=== PATIENT | female | born 1950 | race Caucasian/White ===

== ENCOUNTER 2017-07-06 12:13 | Emergency (ER) | payer OTHER ==
[~2017-07-06 12:13] MED LIST: CIPR500T2 PO; PROM6.257 PO; Z.0.NO CURRENT MEDS
[2017-07-06 12:15] VITALS: BP 168/79; PULSE 91; RESP 16; TEMP 98.2; O2SAT 99
[2017-07-06] MEDS ORDERED: ASPI-516 CHEW (12:26)
--- NOTE | 2017-07-06 12:40 | PD ---
HPI Chief Complaint: Edema Time Seen by Provider: 12:24 Travel History International Travel<30 days: No Contact w/Intl Traveler<30days: No Traveled to known affect area: No History of Present Illness HPI 67yo F with no PMH presents to the ED with c/o left leg pain and swelling for 1 day. Denies any fever, trauma, focal weakness, history of DVT, chest pain, sob , n/v, abdominal pain. Said she has history of left knee meniscus tear and had cortisone injection. Denies any recent surgery. Last travel was in April. PFSH Past Medical History Asthma: Yes Hypertension: Yes Musculoskeletal: Yes (left knee torn miniscus) Immunizations Current: Yes Thyroid Disease: Yes Triglycerides - High: Yes Tetanus Vaccination: > 5 Years Influenza Vaccination: Yes Past Surgical History Appendectomy: Yes Social History Alcohol Use: Yes (weekly, several beers) Tobacco Use: No Substance Use: No Allergies-Medications (Allergen,Severity, Reaction): Coded Allergies: No Known Allergies (Verified Adverse Reaction, Unknown, 07/06/17) Reported Meds & Prescriptions Reported Meds & Active Scripts Active Hydrocodone-Acetaminophen 5-325 mg Tab 1 Tab PO Q6H PRN Eliquis (Apixaban) 5 Mg Tab 10 Mg PO BID Reported Aspirin 81 Mg Chew 81 Mg CHEW DAILY Review of Systems Except as stated in HPI: all other systems reviewed are Neg Physical Exam Narrative GENERAL: 67yo F not in distress. SKIN: Focused skin assessment warm/dry. HEAD: Atraumatic. Normocephalic. EYES: Pupils equal and round. No scleral icterus. No injection or drainage. ENT: No nasal bleeding or discharge. Mucous membranes pink and moist. NECK: Trachea midline. No JVD. CARDIOVASCULAR: Regular rate and rhythm. No murmur appreciated. RESPIRATORY: No accessory muscle use. Clear to auscultation. Breath sounds equal bilaterally. GASTROINTESTINAL: Abdomen soft, non-tender, nondistended. MUSCULOSKELETAL: LLE: +Edema left foot to left tib fib. +TTP left calf. No erythema. DP 2+. Sensation intact. FROM left knee. NEUROLOGICAL: Awake and alert. No obvious cranial nerve deficits. Motor grossly within normal limits. Normal speech. PSYCHIATRIC: Appropriate mood and affect; insight and judgment normal. Data Data Last Documented VS Vital Signs Date Time Temp Pulse Resp B/P (MAP) Pulse Ox O2 Delivery O2 Flow Rate FiO2 2/3/18 15:52 07/06/17 12:15 98.2 91 16 99 Orders Orders Us Leg Venous Doppler (07/06/17 ) Acetamin-Hydrocod 325-5 Mg ([place] 5-325 (07/06/17 14:30) Apixaban (Eliquis) (07/06/17 15:15) Ed Discharge Order (07/06/17 15:22) MDM Medical Decision Making Medical Screen Exam Complete: Yes Emergency Medical Condition: Yes Differential Diagnosis DVT vs. Bakers cyst Narrative Course 67yo F with left leg pain and swelling for 1 day. Denies any chest pain or sob. US showed there is thrombus in the popliteal peroneal and posterior tibial veins. This is partially occlusive. No thrombus in the common femoral vein or superficial femoral vein. The greater saphenous vein is patent. Pt has no medical problems and said she had blood work done by primary care 1 month ago and has normal renal function. Pt given lortab for pain which helped. Discussed risks and benefits and decided together to try outpatient treatment first. Will start anticoagulation with eliquis. Pt given 10mg of eliquis here. Pt instructed to call PMD to follow up in 1-2 days. Return precautions given. Diagnosis Primary Impression: DVT (deep venous thrombosis) Qualified Codes: I82.432 - Acute embolism and thrombosis of left popliteal vein Patient Instructions: General Instructions Departure Forms: Tests/Procedures Additional Instructions: Please take 10mg of eliquis twice a day for second days. After that, it will be 5mg twice a day. Please follow up with your primary care physician on Saturday. Return to the ED if symptoms worsen or you have chest pain or sob. Med/Other Pt SpecificInfo: Prescription(s) given Scripts Hydrocodone-Acetaminophen (Hydrocodone-Acetaminophen) 5-325 mg Tab 1 TAB PO Q6H Y for PAIN, #7 TAB 0 Refills Prov: Giana Trevino DO 07/06/17 Apixaban (Eliquis) 5 Mg Tab 10 MG PO BID for Blood Clot Prevention, #14 TAB 0 Refills Prov: Giana Trevino DO 07/06/17 Disposition: 01 DISCHARGE HOME Condition: Stable Giana Trevino DO Jul 06, 2017 12:40
[2017-07-06] MEDS ORDERED: ACETAMINOPHEN/HYDROcodone 325 MG/5 MG TAB PO ONE (14:30)
--- NOTE | 2017-07-06 14:37 | RADRPT ---
EXAM DATE/TIME: 07/06/2017 13:55 [facility] COMPARISON: No previous studies available for comparison. INDICATIONS : Left leg swelling and pain. MEDICAL HISTORY : Hypertension. Thyroid disease. Hyperlipidemia. Asthma. Left knee torn miniscus. Anticoagulant th erapy, Aspirin 81mg. SURGICAL HISTORY : Appendectomy. ENCOUNTER: Initial ACUITY: 2 day PAIN SCORE: 10/10 LOCATION: Left leg. TECHNIQUE: Venous ultrasound of the leg was performed from the inguinal ligament to the proximal calf. [employer] e, color Doppler and spectral tracing, compression and augmentation techniques were used. FINDINGS: There is thrombus in the popliteal peroneal and posterior tibial veins. This is partially occlusive. No thrombus in the common femoral vein or superficial femoral vein. The greater saphenous vein is pat ent. CONCLUSION: Occlusive thrombus left leg. Emmett aCzares MD on July 06, 2017 at 14:33 Board Certified Radiologist. This report was verified electronically.
[2017-07-06] MEDS ORDERED: APIXABAN 5 MG TABLET PO ONE (15:15)
[2017-07-06] MEDS ORDERED: APIX5TAB PO (15:20)
[2017-07-06] MEDS ORDERED: HYDR-3516 PO (15:21)
== END 2017-07-06 15:52 | disposition home or self-care (01) ==
LOC: NEPE 12:13
DX: I82.432 Acute embolism and thrombosis of left popliteal vein (principal); I10 Essential (primary) hypertension; E07.9 Disorder of thyroid, unspecified; J45.909 Unspecified asthma, uncomplicated; E78.5 Hyperlipidemia, unspecified; Z79.82 Long term (current) use of aspirin
CPT/HCPCS: 93971